=== PATIENT | male | born 1990 | race Caucasian/White ===

== ENCOUNTER 2017-12-29 16:08 | Emergency (ER) | payer OTHER ==
[~2017-12-29] VITALS: Ht 170.2 cm; Wt 77.1 kg
[2017-12-29 16:14] VITALS: Ht 170.2 cm; Wt 77.1 kg
[2017-12-29 17:36] LABS: PLATELET COUNT 288 x10^3mcL (130-400); RED CELL DISTRIBUTION WIDTH 13.5 % (11.5-14.5)
[2017-12-29 17:39] LABS: BASOPHIL % 0 % (0-2)
[2017-12-29 17:55] LABS: CALCIUM 9.3 mg/dL (8.5-10.1); CARBON DIOXIDE 23.7 mmol/L (21-32); CHLORIDE SERUM 101 mmol/L (98-107); CREATININE SERUM 1.4 mg/dL (0.7-1.3); GFR1 > 60 mL/min; GLUCOSE SERUM 132 mg/dL (74-106); POTASSIUM SERUM 3.3 mmol/L (3.5-5.1); SODIUM SERUM 138 mmol/L (136-145)
[2017-12-29 20:25] LABS: TOTAL PROTEIN CSF 23.6 mg/dL (15-45)
[2017-12-29 20:39] LABS: APPEARANCE CSF CLEAR; COLOR CSF COLORLESS; RBC CSF 207 /cumm (0); WBC CSF 8 /cumm (0-5)
[2017-12-29 21:01] LABS: APPEARANCE CSF CLEAR; COLOR CSF COLORLESS; RBC CSF 24 /cumm (0); WBC CSF 4 /cumm (0-5)
[2017-12-29 22:15] VITALS: BP 136/71
== END 2017-12-29 22:15 | disposition home or self-care (01) ==
LOC: ED 16:08 → EDBD 16:08 → ED 22:15
PROVIDERS: Emergency Medicine
DX: A87.9 Viral meningitis, unspecified (principal)
CPT/HCPCS: J0780; J2001; J7030; Q0162